=== PATIENT | female | born 1995 | race Caucasian/White ===

== ENCOUNTER 2017-10-11 20:34 | Emergency (ER) | payer OTHER ==
[~2017-10-11] VITALS: Ht 175.3 cm; Wt 71.7 kg
[2017-10-11] MEDS ORDERED: SODIUM CHLORIDE FLUSH 10ML SYR IVF ONE (22:00)
[2017-10-11 22:11] LABS: BASOPHILS % (AUTO) 1 % (0-1); EOSINOPHILS # (AUTO) 0.01 x10^3/uL (0-0.8); EOSINOPHILS % (AUTO) 0 % (1-7); LYMPHOCYTES # (AUTO) 3.48 x10^3/uL (1-6.1); LYMPHOCYTES % (AUTO) 34 % (22-44); MD NO; MEAN CORPUSCULAR HEMOGLOBIN 23.9 pg (27.0-34.8); MEAN CORPUSCULAR HGB CONC 32.7 g/dL (32.4-35.8); MEAN PLATELET VOLUME 8.9 fL (7.4-10.4); MONOCYTES # (AUTO) 0.66 x10^3/uL (0-1.4); MONOCYTES % (AUTO) 6 % (2-9); NEUTROPHILS # (AUTO) 6.02 x10^3/uL (1.8-8.0); NEUTROPHILS % (AUTO) 59 % (42-75); PLATELET COUNT 401 x10^3/uL (130-400); RED BLOOD COUNT 4.72 x10^6/uL (3.82-5.3); RED CELL DISTRIBUTION WIDTH 17.5 % (9.6-15.2)
[2017-10-11 22:24] LABS: ALBUMIN 3.5 g/dL (3.4-5.0); ANION GAP 8 mmol/L (5-15); CALCIUM 8.8 mg/dL (8.5-10.1); CHLORIDE 105 mmol/L (98-107)
[2017-10-11 22:25] LABS: HCG UR SG 1.022 (1.003-1.030); MICROSCOPIC AUTO
[2017-10-11 22:27] LABS: ALANINE AMINOTRANSFERASE 19 U/L (12-78); ALKALINE PHOSPHATASE 55 U/L (45-117); BILIRUBIN,TOTAL 0.4 mg/dL (0.2-1.0); CREATININE 0.75 mg/dL (0.55-1.02); TOTAL PROTEIN 8.3 g/dL (6.4-8.2)
[2017-10-11 22:28] LABS: CULTURE INDICATED? NO
[2017-10-11] MEDS ORDERED: OMNIPAQUE 350 MG/ML, 100ML BOTTLE ONE (22:53)
[2017-10-12 00:28] VITALS: BP 127/79
== END 2017-10-12 00:31 | disposition home or self-care (01) ==
LOC: ED 22:50
DX: R10.84 Generalized abdominal pain (principal); K92.1 Melena
CPT/HCPCS: 36415; 74177; 80053; 81001; 81025; 83690; 85025; 99285; Q9967

== ENCOUNTER 2019-12-12 20:00 | Emergency (ER) | payer OTHER ==
[~2019-12-12] VITALS: Ht 172.7 cm; Wt 67.5 kg
[2019-12-12] MEDS ORDERED: SODIUM CHLORIDE 0.9% 1,000ML IVBOLUS ONE (20:30)
[2019-12-12] MEDS ORDERED: ACETAMINOPHEN 500 MG TABLET PO ONE (20:30)
[2019-12-12] MEDS ORDERED: ACETAMINOPHEN 500 MG TABLET ONE (20:33)
[2019-12-12 21:11] LABS: BASOPHILS # (AUTO) 0.02 x10^3/uL (0-0.1); BASOPHILS % (AUTO) 0 % (0-1); EOSINOPHILS % (AUTO) 0 % (1-7); LYMPHOCYTES # (AUTO) 1.24 x10^3/uL (1-3.4); LYMPHOCYTES % (AUTO) 12 % (22-44); MD NO; MEAN CORPUSCULAR HEMOGLOBIN 28.3 pg (27.0-34.8); MEAN CORPUSCULAR HGB CONC 32.9 g/dL (32.4-35.8); MEAN PLATELET VOLUME 8.8 fL (7.4-10.4); MONOCYTES # (AUTO) 1.37 x10^3/uL (0.2-0.8); MONOCYTES % (AUTO) 13 % (2-9); NEUTROPHILS # (AUTO) 7.98 x10^3/uL (1.8-6.8); NEUTROPHILS % (AUTO) 75 % (42-75); PLATELET COUNT 242 x10^3/uL (130-400); RED BLOOD COUNT 4.47 x10^6/uL (3.82-5.3)
[2019-12-12 21:24] LABS: ALANINE AMINOTRANSFERASE 12 U/L (12-78); ALBUMIN 3.1 g/dL (3.4-5.0); ANION GAP 7 mmol/L (5-15); CALCIUM 8.3 mg/dL (8.5-10.1); CHLORIDE 107 mmol/L (98-107); CREATININE 0.92 mg/dL (0.55-1.02)
--- NOTE | 2019-12-12 21:24 | NUR ---
task rn: pt resting comfortably in [facility] at this time with call light within reach. vss and updated in emr at this time. pt has all vs monitors in place and denies any needs at this moment.
[2019-12-12 21:28] LABS: ALKALINE PHOSPHATASE 52 U/L (45-117); TOTAL PROTEIN 7.2 g/dL (6.4-8.2)
[2019-12-12] MEDS ORDERED: KETOROLAC 30 MG/1 ML IVPush ONE (22:00)
[2019-12-12 22:30] LABS: MICROSCOPIC INDICATED
[2019-12-12 23:23] VITALS: BP 121/65
== END 2019-12-13 00:20 | disposition home or self-care (01) ==
LOC: ED 23:07
DX: B34.9 Viral infection, unspecified (principal); R50.9 Fever, unspecified; R00.0 Tachycardia, unspecified; M79.10 Myalgia, unspecified site
CPT/HCPCS: 36415; 71045; 80053; 81001; 83605; 84145; 84703; 85025; 87040; 87086; 99284; J7030

== ENCOUNTER 2020-05-15 16:03 | Emergency (ER) | payer OTHER ==
[~2020-05-15] VITALS: Ht 172.7 cm; Wt 62.6 kg
[2020-05-15 21:17] LABS: RAPID INFLUENZA A Negative (Negative); RAPID INFLUENZA B Negative (Negative)
[2020-05-15 21:26] LABS: BASOPHILS % (AUTO) 1 % (0-1); EOSINOPHILS % (AUTO) 2 % (1-7); LYMPHOCYTES % (AUTO) 20 % (22-44); MEAN CORPUSCULAR HEMOGLOBIN 27.7 pg (27.0-34.8); MEAN CORPUSCULAR HGB CONC 32.3 g/dL (32.4-35.8); MEAN PLATELET VOLUME 8.3 fL (7.4-10.4); MONOCYTES % (AUTO) 11 % (2-9); NEUTROPHILS % (AUTO) 65 % (42-75); PLATELET COUNT 329 x10^3/uL (130-400); RED BLOOD COUNT 4.85 x10^6/uL (3.82-5.3); RED CELL DISTRIBUTION WIDTH 14.9 % (9.6-15.2)
[2020-05-15 21:27] LABS: MD NO
[2020-05-15 21:32] VITALS: BP 116/72
[2020-05-15 21:36] LABS: ALBUMIN 3.2 g/dL (3.4-5.0); ANION GAP 5 mmol/L (5-15); CALCIUM 8.6 mg/dL (8.5-10.1); CHLORIDE 104 mmol/L (98-107); CREATININE 0.72 mg/dL (0.55-1.02)
[2020-05-15 21:43] LABS: ALANINE AMINOTRANSFERASE 1054 U/L (12-78); ALKALINE PHOSPHATASE 186 U/L (45-117); BILIRUBIN,TOTAL 1.1 mg/dL (0.2-1.0)
== END 2020-05-15 23:44 | disposition home or self-care (01) ==
LOC: ED 23:35
DX: B34.9 Viral infection, unspecified (principal); Z20.828 Contact with and (suspected) exposure to other viral communicable diseases; R94.5 Abnormal results of liver function studies; R06.02 Shortness of breath; R50.9 Fever, unspecified; R11.0 Nausea; R05 Cough; M79.10 Myalgia, unspecified site
CPT/HCPCS: 36415; 71045; 80053; 80074; 84703; 85025; 86038; 86308; 87400; 87635; 99284

== ENCOUNTER 2020-05-25 09:57 | Emergency (ER) | payer OTHER ==
[~2020-05-25] VITALS: Ht 172.7 cm; Wt 62.2 kg
--- NOTE | 2020-05-25 10:21 | NUR ---
PT STATES NEEDS TO GET LIVER ENZYMES TESTED AGAIN. STATED LAST TESTS WERE SEVERELY ELEVATED. PT HAS BEEN UNABLE TO SEE PCP SINCE LAST ED VISIT FOR SAME. PT IS HAVING HARD TIME EATING, LOST 9 LBS IN LAST 3 WEEKS PER PT AND FEVERS AT NIGHT WITH BILAT LEG ACHES AND PAINS. PT'S MOM AT BEDSIDE. PT RESTING IN GURNEY, CARDIAC MONITORING & CONTINUOUS PULSE OX IN PLACE, NAD NOTED AT THIS TIME.
--- NOTE | 2020-05-25 10:38 | NUR ---
URINE SPECIMEN COLLECTED AND SENT TO LAB.
[2020-05-25 11:25] LABS: BASOPHILS % (AUTO) 1 % (0-1); EOSINOPHILS % (AUTO) 5 % (1-7); LYMPHOCYTES % (AUTO) 29 % (22-44); MEAN CORPUSCULAR HEMOGLOBIN 28.7 pg (27.0-34.8); MEAN CORPUSCULAR HGB CONC 33.2 g/dL (32.4-35.8); MEAN PLATELET VOLUME 8.8 fL (7.4-10.4); MONOCYTES % (AUTO) 11 % (2-9); NEUTROPHILS % (AUTO) 54 % (42-75); PLATELET COUNT 322 x10^3/uL (130-400)
--- NOTE | 2020-05-25 11:27 | NUR ---
PT RESTING IN GURNEY, CARDIAC MONITORING & CONTINUOUS PULSE OX IN PLACE, US AT BEDSIDE. PT'S MOM AT BEDSIDE, NAD NOTED AT THIS TIME.
[2020-05-25 11:30] LABS: PROTHROMBIN TIME 10.6 Seconds (9.6-11.5)
[2020-05-25 11:33] LABS: ALBUMIN 3.2 g/dL (3.4-5.0); ANION GAP 7 mmol/L (5-15); CALCIUM 8.7 mg/dL (8.5-10.1); CHLORIDE 109 mmol/L (98-107)
[2020-05-25 11:41] LABS: ALANINE AMINOTRANSFERASE 888 U/L (12-78); ALKALINE PHOSPHATASE 167 U/L (45-117); BILIRUBIN,TOTAL 0.7 mg/dL (0.2-1.0); C-REACTIVE PROTEIN, QUANT 0.14 mg/dL (0.02-0.49); CREATININE 0.69 mg/dL (0.55-1.02); TOTAL PROTEIN 8.1 g/dL (6.4-8.2)
[2020-05-25 11:53] LABS: MD NO
[2020-05-25 12:22] LABS: MICROSCOPIC NOT IND
--- NOTE | 2020-05-25 12:56 | NUR ---
PT RESTING ON MELODY ETIENNE NOTED. PT STATES NO NEEDS AT THIS TIME. PT'S MOM AT BEDSIDE.
[2020-05-25 13:30] VITALS: BP 107/74
== END 2020-05-25 13:32 | disposition home or self-care (01) ==
LOC: ED 10:40
DX: L04.0 Acute lymphadenitis of face, head and neck (principal); B34.9 Viral infection, unspecified; R74.8 Abnormal levels of other serum enzymes
CPT/HCPCS: 36415; 76700; 80053; 81003; 83690; 84703; 85025; 85610; 85730; 86140; 86645; 86664; 86665; 86777; 87040; 99284